=== PATIENT | female | born 1970 | race Caucasian/White ===

== ENCOUNTER 2021-05-24 07:47 | Outpatient (CLI) | payer BC | END 2021-05-24 07:48 | disposition home or self-care (01) | LOC: CSHLAB 07:47 | PROVIDERS: ATTEND Obstetrics & Gynecology | DX: Z01.818 Encounter for other preprocedural examination (principal); N80.0 Endometriosis of uterus; Z86.16 Personal history of COVID-19 | CPT/HCPCS: 80048; 84703; 85027; 86850; 86900; 86901; 93005; 93010 ==

== ENCOUNTER 2021-05-28 07:52 | Day surgery (SDC) | payer BC ==
[2021-04-09 13:37] VITALS: BMI 37.2
[2021-05-24 08:48] LABS: Hemoglobin 10.8 g/dL (12.0-15.5); Mean Corpuscular HGB CONC 30.6 g/dL (32.0-36.0); Mean Corpuscular Volume 75.3 fl (81.6-98.3); Platelet Count 366 10x3/uL (150-450); RBC Distribution Width 15.1 % (11.5-14.5); Red Blood Cell (RBC) Count 4.69 10x6/uL (3.90-5.03); White Blood Cell (WBC) Count 5.2 10x3/uL (3.5-10.5)
[2021-05-24 09:06] LABS: Anion Gap 12 mmol/L (10-20); BUN (Urea Nitrogen) 17 mg/dL (7.0-18.7); Calc. Creatinine Clearance 0 mL/min (70-130); Calcium 9.1 mg/dL (7.8-10.44); Carbon Dioxide 25 mmol/L (22-29); Chloride 105 mmol/L (98-107); Glucose 253 mg/dL (70-105); Potassium 4.7 mmol/L (3.5-5.1); Sodium 137 mmol/L (136-145)
[2021-05-24 09:10] LABS: BHCG - Serum Negative (NEGATIVE); Pregs Control Background? CLEAR/WHITE (CLR/WHITE); Pregs Control Bar Appear? YES (CONTROL BAR)
[2021-05-28] MEDS ORDERED: Gabapentin 300 MG CAP ONE (08:18)
[2021-05-28] MEDS ORDERED: CeleCOXIB 100 MG CAP ONE (08:19)
[2021-05-28] MEDS ORDERED: Lidocaine 1% MPF 2 ML VIAL ONE (08:19)
[2021-05-28] MEDS ORDERED: Famotidine/PF 20 mg/2ml Vial ONE (08:19)
[2021-05-28] MEDS ORDERED: Bupivacaine PF 0.5% 30 ML VIAL ONE (09:53)
[2021-05-28] MEDS ORDERED: EPINEPHrine 1 MG/ML AMP ONE (09:53)
[2021-05-28] MEDS ORDERED: Fentanyl 250 MCG/5 ML VIAL ONE (09:58)
[2021-05-28] MEDS ORDERED: PROPOFOL 20 ML ONE (09:58)
[2021-05-28] MEDS ORDERED: Ketorolac Tromethamine 30 MG/ML VIAL ONE (09:59)
[2021-05-28] MEDS ORDERED: Dexamethasone 4 mg/ml Vial ONE (09:59)
[2021-05-28] MEDS ORDERED: Promethazine HCl 25 MG/ML VIAL ONE (10:00)
[2021-05-28] MEDS ORDERED: Ondansetron PF 4 MG/2 ML Vial ONE (10:07)
[2021-05-28] MEDS ORDERED: ceFAZolin 2 GM/Dextrose 50 ML IVPB ONE (10:10)
[2021-05-28] MEDS ORDERED: Glycopyrrolate 0.2 MG/ML 5 ML SYRINGE ONE (11:34)
== END 2021-05-28 15:10 | disposition home or self-care (01) ==
LOC: CSHSDC 07:52
PROVIDERS: ATTEND Obstetrics & Gynecology
PROC: 0UT24ZZ Resection of Bilateral Ovaries, Percutaneous Endoscopic Approach (ICD-10-PCS; principal; 2021-05-28)
PROC: 0UT74ZZ Resection of Bilateral Fallopian Tubes, Percutaneous Endoscopic Approach (ICD-10-PCS; principal; 2021-05-28)
PROC: 0UT94ZZ Resection of Uterus, Percutaneous Endoscopic Approach (ICD-10-PCS; principal; 2021-05-28)
DX: N80.0 Endometriosis of uterus (principal); D25.2 Subserosal leiomyoma of uterus; N87.9 Dysplasia of cervix uteri, unspecified; N72 Inflammatory disease of cervix uteri; N83.291 Other ovarian cyst, right side; N83.12 Corpus luteum cyst of left ovary; N83.8 Other noninflammatory disorders of ovary, fallopian tube and broad ligament; E11.9 Type 2 diabetes mellitus without complications; I10 Essential (primary) hypertension; Z79.82 Long term (current) use of aspirin; Z79.84 Long term (current) use of oral hypoglycemic drugs; Z79.899 Other long term (current) drug therapy
CPT/HCPCS: 36415; 36416; 80048; 84703; 85027; 86850; 86900; 86901; 88307; J0171; J0690; J1100; J1885; J2405; J2550; J2704; J3010; S0020; S0028